=== PATIENT | male | born 1990 | race Caucasian/White ===

== ENCOUNTER 2021-03-21 14:00 | Emergency (ER) | payer OTHER ==
[2021-03-21] MEDS ORDERED: CEPHALEXIN500 MG PO (18:01)
== END 2021-03-21 18:18 | disposition home or self-care (01) ==
LOC: FER 14:00
DX: S61.411A Laceration without foreign body of right hand, initial encounter (principal); F17.210 Nicotine dependence, cigarettes, uncomplicated; Z23 Encounter for immunization; W26.8XXA Contact with other sharp object(s), not elsewhere classified, initial encounter; Y92.828 Other wilderness area as the place of occurrence of the external cause
CPT/HCPCS: 73130; 90471; 90715